=== PATIENT | female | born 1955 | race Caucasian/White ===

== ENCOUNTER 2017-07-07 14:00 | Observation (INO) | payer MEDICARE, OTHER ==
[~2017-07-07] VITALS: Ht 157.5 cm; Wt 49.0 kg
--- OUTSIDE RECORDS SUMMARY | 2017-07-07 14:02 | XMS REPORT | Clinical Summary ---
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 Disp. Refills Start End Date Status Date fentaNYL (DURAGESIC) 50 Place 1 patch on the skin Active mcg/hr every third day. morPHINE (MSIR) 15 MG Take 15 mg by mouth every Active tablet 4 (four) hours as needed for severe pain. carisoprodol (SOMA) 350 Take 350 mg by mouth 4 Active MG tablet (four) times a day as needed for muscle spasms. clonAZEPAM (KlonoPIN) 0.5 Take 0.5 mg by mouth 2 Active MG tablet (two) times a day as needed for seizures. sucralfate (CARAFATE) 1 Take 1 g by mouth 4 Active gram tablet (four) times a day. acetaminophen (TYLENOL Take 650 mg by mouth Active ARTHRITIS PAIN) 650 MG 8 every 8 (eight) hours as hr tablet needed for mild pain. acetaminophen (TYLENOL) Take 500 mg by mouth Active 500 MG tablet every 6 (six) hours as needed for mild pain. omeprazole (PriLOSEC) 20 Take 20 mg by mouth Active MG capsule daily. POLYETHYLENE GLYCOL 3350 Take by mouth. Active (MIRALAX ORAL) DOCUSATE SODIUM (STOOL Take by mouth. Active SOFTENER ORAL) camphor-methyl Apply topically. 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 Encounters Date Type Specialty Care Team Description 07/01/2017 Office Visit Oncology Vito Mahajan MD Malignant cachexia (Primary Dx); Cancer associated pain; Malignant neoplasm of lower lobe of left lung 06/11/2017 Telephone Oncology Dorothea Fermin MD 06/10/2017 Hospital Radiology Dorothea Fermin MD Non-small cell lung Encounter cancer, unspecified laterality 06/04/2017 Transcribe Oncology Vito Mahajan MD Malignant neoplasm of Orders lung, unspecified laterality, unspecified part of lung (Primary Dx) 06/04/2017 Orders Only Oncology Noa Jefferson RN Non-small cell lung cancer, unspecified laterality (Primary Dx) 06/03/2017 Office Visit Oncology Vito Mahajan MD Malignant neoplasm of lower lobe of left lung (Primary Dx); Cancer associated pain; Malignant cachexia 06/01/2017 Office Visit Oncology Dorothea Fermin MD Non-small cell lung cancer, unspecified laterality (Primary Dx) 06/01/2017 Oncology Oncology Nadeen Domingo RN Survivorship after 07/06/2016 Family History Medical History Relation Name Comments Stroke Mother Relation Name Status Comments Mother Social History Tobacco Use Types Packs/Day Years Used Date Former Smoker Cigarettes 1 48 Smokeless Tobacco: Former User Alcohol Use Drinks/Week oz/Week Comments No Sex Assigned at Date Recorded Not on file Last Filed Vital Signs Vital Sign Reading Time Taken Blood Pressure 110/54 07/01/2017 2:04 PM CDT Pulse 118 07/01/2017 2:04 PM CDT Temperature 36.9 C (98.4 F) 07/01/2017 2:04 PM CDT Respiratory Rate 24 06/01/2017 8:39 AM CLAIMS REPRESENTATIVE Oxygen Saturation - - Inhaled Oxygen - - Concentration Weight 46.4 kg (102 lb 3.2 oz) 07/01/2017 2:04 PM CDT Height 157.5 cm (5' 2") 07/01/2017 2:04 PM CDT Body Mass Index 18.69 07/01/2017 2:04 PM CDT Plan of Treatment Date Type Specialty Care Team Description 07/29/2017 Office Visit Oncology Vito Mahajan MD [address] [facility] [address] [place] [address] Health Maintenance Due Date Last Done Comments PAP SMEAR 1975 COLONOSCOPY 2004 MAMMOGRAM 2004 ZOSTER VACCINE 2014 INFLUENZA VACCINE 11/10/2016 Results * PET/CT Skull Base To Mid Thigh (06/10/2017 5:55 PM) Specimen Performing Laboratory [facility] [address] [place] [address] Narrative PROCEDURE:PET CT SKULL BASE TO MID THIGH INDICATION:Restaging lung cancer, subsequent treatment strategy. TECHNIQUE:Blood glucose measured at the time of injection was 91 mg/dL. The patient was then injected with 9.1 mCi of 18F-FDG, IV.Approximately one hour later, PET images were acquired from the skull base to the mid thighs. Corresponding, low dose, non-contrast CT scanning was performed as part of the attenuation correction process.Automated dose exposure control was utilized. COMPARISON:No comparison imaging. FINDINGS: Head and neck:No suspicious brain uptake.Normal uptake is seen in the visualized sinuses, orbits, nasopharynx, and oropharynx.Uptake by the larynx is normal.No suspicious neck lymph node uptake. Chest:Left lower paratracheal lymph node demonstrates an SUV of 5.7.It is not enlarged by size criteria, measuring 1.1 cm x 0.6 cm.Left infrahilar mass abuts the descending thoracic aorta and demonstrates increased uptake. There are areas of necrosis present.The maximum SUV is 13.3.At its largest, the mass measures 9.5 cm x 6.1 cm.There is probable pleural involvement, but no definite chest wall invasion.No suspicious uptake in the right lung. Abdomen:Normal uptake is seen in the stomach, spleen, pancreas, liver, and adrenal glands.Enlarged gastrohepatic lymph node demonstrates an SUV of 11.2 and measures 2.4 cm x 1.5 cm.Small retrocrural lymph node demonstrates an SUV of 3.No abnormal retroperitoneal lymph node uptake.Physiologic bowel uptake. Pelvis:Physiologic bowel uptake.No abnormal pelvic sidewall or inguinal lymph node uptake. Review of the osseous structures demonstrates abnormal uptake within sclerosis in the left pedicle of T7, with an SUV of 7.8. IMPRESSION: 1.Primary left infrahilar malignancy, with probable mediastinal and pleural invasion.No definite chest wall invasion. 2.Metastatic disease is identified within lymph nodes in the chest and abdomen and within the thoracic spine. [facility]-[id number] Procedure Note Interface, Radiology Results - 06/10/2017 6:28 PM CLAIMS REPRESENTATIVE PROCEDURE: PET CT SKULL BASE TO MID THIGH INDICATION: Restaging lung cancer, subsequent treatment strategy. TECHNIQUE: Blood glucose measured at the time of injection was 91 mg/dL. The patient was then injected with 9.1 mCi of 18F-FDG, IV. Approximately one hour later, PET images were acquired from the skull base to the mid thighs. Corresponding, low dose, non-contrast CT scanning was performed as part of the attenuation correction process. Automated dose exposure control was utilized. COMPARISON: No comparison imaging. FINDINGS: Head and neck: No suspicious brain uptake. Normal uptake is seen in the visualized sinuses, orbits, nasopharynx, and oropharynx. Uptake by the larynx is normal. No suspicious neck lymph node uptake. Chest: Left lower paratracheal lymph node demonstrates an SUV of 5.7. It is not enlarged by size criteria, measuring 1.1 cm x 0.6 cm. Left infrahilar mass abuts the descending thoracic aorta and demonstrates increased uptake. There are areas of necrosis present. The maximum SUV is 13.3. At its largest, the mass measures 9.5 cm x 6.1 cm. There is probable pleural involvement, but no definite chest wall invasion. No suspicious uptake in the right lung. Abdomen: Normal uptake is seen in the stomach, spleen, pancreas, liver, and adrenal glands. Enlarged gastrohepatic lymph node demonstrates an SUV of 11.2 and measures 2.4 cm x 1.5 cm. Small retrocrural lymph node demonstrates an SUV of 3. No abnormal retroperitoneal lymph node uptake. Physiologic bowel uptake. Pelvis: Physiologic bowel uptake. No abnormal pelvic sidewall or inguinal lymph node uptake. Review of the osseous structures demonstrates abnormal uptake within sclerosis in the left pedicle of T7, with an SUV of 7.8. IMPRESSION: 1. Primary left infrahilar malignancy, with probable mediastinal and pleural invasion. No definite chest wall invasion. 2. Metastatic disease is identified within lymph nodes in the chest and abdomen and within the thoracic spine. [facility]-[id number] * CBC with platelet and differential (06/01/2017 9:58 AM) Component Value Ref Range WBC 17.3 (H) 3.4 - 10.8 x10E3/uL RBC 4.32 3.77 - 5.28 x10E6/uL HGB 12.4 11.1 - 15.9 g/dL HCT 38.2 34.0 - 46.6 % MCV 88 79 - 97 fL MCH 28.7 26.6 - 33.0 pg MCHC 32.5 31.5 - 35.7 g/dL RDW 15.0 12.3 - 15.4 % Platelet count 652 (H) 150 - 379 x10E3/uL Neutrophils 61 Not Estab. % Lymphocytes 12 Not Estab. % Monocytes 8 Not Estab. % Eosinophils 18 Not Estab. % Basophils 1 Not Estab. % Neutrophils, absolute 10.5 (H) 1.4 - 7.0 x10E3/uL Lymphocytes, absolute 2.1 0.7 - 3.1 x10E3/uL Monocytes, absolute 1.3 (H) 0.1 - 0.9 x10E3/uL Eosinophils, absolute 3.2 (H) 0.0 - 0.4 x10E3/uL Basophils, absolute 0.1 0.0 - 0.2 x10E3/uL Immature granulocytes 0 Not Estab. % Immature grans (abs) 0.0 0.0 - 0.1 x10E3/uL Specimen Performing Laboratory [facility] Narrative Performed at:[address] [place] [address] Middle School Football Coach: Vimal Razo MD, Phone:[phone] * Comprehensive metabolic panel (06/01/2017 9:58 AM) Component Value Ref Range Glucose 83 65 - 99 mg/dL BUN, whole blood 5 (L) 8 - 27 mg/dL Creatinine 0.44 (L) 0.57 - 1.00 mg/dL EGFR Non-Afr. Togolese 108 >59 EGFR 124 >59 BUN/creatinine ratio 11 (L) 12 - 28 Sodium 137 134 - 144 mmol/L Potassium 5.2 3.5 - 5.2 mmol/L Chloride 93 (L) 96 - 106 mmol/L CO2 23 18 - 29 mmol/L Calcium 9.3 8.7 - 10.3 mg/dL Protein 5.7 (L) 6.0 - 8.5 g/dL Albumin, S 3.3 (L) 3.6 - 4.8 g/dL Globulin, total 2.4 1.5 - 4.5 Albumin/globulin ratio 1.4 1.2 - 2.2 Total bilirubin <0.2 0.0 - 1.2 mg/dL Alkaline phosphatase 110 39 - 117 IU/L AST 7 0 - 40 IU/L ALT 3 0 - 32 IU/L Specimen Performing Laboratory Blood [facility] Narrative Performed at:[address] [place], [place] [id number] Middle School Football Coach: Vimal Razo MD, Phone:[phone] after 07/06/2016 Insurance Payer Benefit Subscriber ID Type Phone Address Plan / Group MEDICARE MEDICARE xxxxxxxxxx Medicare [place], [place] PART A AND B COMMERCIAL MISC MISC xxxxxxxxxx [place] [address]
[2017-07-07 14:47] LABS: BASOPHILS % 0.2 % (0.0-1.0); EOSINOPHILS # (AUTO) 0.5 (0.0-0.4); EOSINOPHILS % 4.5 % (0.0-6.0); HEMATOCRIT 32.1 % (34.2-44.1); HEMOGLOBIN 10.1 g/dL (12.0-16.0); LYMPHOCYTES # (AUTO) 0.3 (1.0-3.2); LYMPHOCYTES % 2.2 % (18.0-39.1); MEAN CORPUSCULAR HEMOGLOBIN 26.4 pg (28-32); MEAN CORPUSCULAR HGB CONC 31.5 g/dL (31-35); MONOCYTES # (AUTO) 1.4 (0.2-0.8); MONOCYTES % 11.2 % (4.4-11.3); NEUTROPHILS # (AUTO) 9.8 (2.1-6.9); NEUTROPHILS % 80.9 % (38.7-80.0); PLATELET COUNT 421 x10e3/uL (140-360); RED BLOOD COUNT 3.82 x10e6/uL (3.6-5.1); RED CELL DISTRIBUTION WIDTH 15.1 % (11.7-14.4)
[2017-07-07 14:54] LABS: INR 1.03; PROTHROMBIN TIME 12.7 seconds (11.9-14.5)
[2017-07-07 14:55] LABS: BILIRUBIN,URINE NEGATIVE (NEGATIVE); KETONES,URINE NEGATIVE (NEGATIVE); LEUKOCYTE ESTERASE ,URINE TRACE (NEGATIVE); NITRITE,URINE NEGATIVE (NEGATIVE); PARTIAL THROMBOPLASTIN TIME 32.8 seconds (23.8-35.5); PROTEIN,URINE DIPSTICK NEGATIVE (NEGATIVE); URINE UROBILINOGEN 0.2 mg/dL (0.2 - 1)
[2017-07-07 14:56] LABS: CLARITY,URINE CLEAR (CLEAR); COLOR,URINE YELLOW (YELLOW)
--- NOTE | 2017-07-07 14:59 | Diagnostic Imaging Report ---
EXAMINATION: Head CT HISTORY: Confusion, reaction to methadone COMPARISON: None. TECHNIQUE: Multidetector axial images were obtained without contrast from the foramen magnum to the vertex . The images were reconstructed using brain and bone algorithms. Thin section brain images were reformatted into coronal and sagittal planes. Intravenous contrast: None. Motion/streaking artifact limits the evaluation of the skull base and posterior cranial fossa. FINDINGS: Parenchyma: 1. Moderate confluent periventricular and cloud radiata white matter hypodensities, most likely nonspecific chronic microvascular ischemic changes. 2. No mass or hemorrhage. No CT evidence of acute territorial vascular insult. Extra-axial spaces:No abnormal density. No extra-axial fluid collections Brain volume: Normal for age. Ventricles: No hydrocephalus or displacement. Arteries: No density suggestive of thrombus. Dural sinuses: No abnormal density. Extra-axial spaces: No abnormal density. Foramen magnum: No mass, Chiari malformation, or basilar invagination. Sella: No obvious mass. Paranasal/mastoid sinuses: Imaged portions unremarkable. Skull/Scalp: No lytic or blastic lesions. No fractures. IMPRESSION: 1. No acute intracranial hemorrhage or CT evidence of acute territorial cortical vascular insults. 2. Moderate chronic microvascular ischemic changes. Superimposed acute ischemia cannot be excluded, if there is clinical concern for acute ischemia a brain MRI is recommended for further evaluation. Signed by: Dr. Eryn Suarez M.D. on 07/07/2017 2:55 PM
[2017-07-07 15:02] LABS: ALBUMIN 2.2 g/dL (3.5-5.0); ALBUMIN/GLOBULIN RATIO 0.6 (0.8-2.0); ALKALINE PHOSPHATASE 98 IU/L (40-150); ANION GAP 13.6 mmol/L (8-16); BLOOD UREA NITROGEN < 5 mg/dL (7-26); CALCIUM 9.1 mg/dL (8.4-10.2); CARBON DIOXIDE 30 mmol/L (22-29); CHLORIDE 95 mmol/L (98-107); CREATININE, SERUM 0.52 mg/dL (0.57-1.11); EST GLOMERULAR FILTRATION RATE > 60 ML/MIN (60-); GLUCOSE 112 mg/dL (74-118); POTASSIUM 3.6 mmol/L (3.5-5.1); SODIUM 135 mmol/L (136-145)
[2017-07-07 15:03] LABS: ALANINE AMINOTRANSFERASE < 6 IU/L (0-55); BUN/CREATININE RATIO 10 (6-25)
[2017-07-07 15:12] LABS: EPITHELIAL CELLS,URINE MANY /LPF
[2017-07-07 15:13] LABS: RBC,URINE 0-5 /HPF (0-5); WBC,URINE (MAN) 21-50 /HPF (0-5)
[2017-07-07 15:14] LABS: TRANSITIONAL EPI CELLS,URINE MANY
[2017-07-07 15:18] LABS: CREATINE KINASE 21 IU/L (29-168)
--- NOTE | 2017-07-07 15:21 | Diagnostic Imaging Report ---
PROCEDURE: X-RAY CHEST, TWO VIEWS COMPARISON: None. INDICATIONS: dizzy, shaking FINDINGS: LUNGS: Complete opacification of the left hemithorax. Right lung is well-inflated without mass or infiltrate. There is eventration of left diaphragm. No surgical clips are visible. PLEURA: No right pleural effusion or pneumothorax.. HEART \T\ MEDIASTINUM: MediPort catheter terminates in the SVC. The heart is poorly visualized due to opacification of the left hemithorax. BONES \T\ SOFT TISSUES: No lytic or blastic lesions. There is mild scoliosis of the thoracolumbar spine convex to the right. CONCLUSION: Complete opacification of the left hemithorax either due to malignancy or left pneumonectomy. No abnormalities of the right hemithorax. Dictated by: Rob Day M.D. on 07/07/2017 at 15:22 Electronically approved by: Rob Day M.D. on 07/07/2017 at 15:22
[2017-07-07 15:49] LABS: BAND NEUTROPHILS % (MANUAL) 2 %; EOSINOPHILS % (MANUAL) 5 % (0-7); LYMPHOCYTES % (MANUAL) 3 % (19-48); MONOCYTES % (MANUAL) 9 % (3.4-9.0); NEUTROPHILS % (MANUAL) 81 % (40-74)
[2017-07-07 15:50] LABS: PLATELET MORPHOLOGY COMMENT NORMAL
[2017-07-07 15:51] LABS: ANISOCYTOSIS SLIGHT; PLATELET ESTIMATE ADEQUATE; RBC MORPHOLOGY COMMENT NORMAL
[2017-07-07] MEDS ORDERED: SODIUM CHLORIDE 0.9% 1000ML 1,000 ML IV SCH (16:30)
[2017-07-07] MEDS ORDERED: METHADONE HCL10 MG PO (16:32)
[2017-07-07] MEDS ORDERED: GABAPENTIN100 MG PO (16:32)
[2017-07-07] MEDS ORDERED: PRILOSEC10 M1 PEG (16:32)
[2017-07-07] MEDS ORDERED: CARAFATE1 GM/10 ML PO (16:32)
[2017-07-07] MEDS ORDERED: KLONOPIN0.5 MG PO (16:32)
[2017-07-07] MEDS ORDERED: FENTANYL 50 MCG TOP (16:32)
[2017-07-07] MEDS ORDERED: OTC STOOL SOFTNER PO (16:32)
[2017-07-07] MEDS ORDERED: MORPHINE SULFAT30 M2 PO (16:32)
[2017-07-07] MEDS ORDERED: SODIUM CHLORIDE 0.9% 1000ML 1,000 ML IV STA (16:33)
--- OUTSIDE RECORDS SUMMARY | 2017-07-07 16:57 | XMS REPORT ---
Author Author [facility] Address Unknown Phone Unavailable Care Team Providers Care Fabricator Special Items Name Role Phone DAFNE GRIFFIN Unavailable Unavailable Problems This patient has no known problems. Allergies, Adverse Reactions, Alerts This patient has no known allergies or adverse reactions. Medications This patient has no known medications. Results Test Description Test Time Test Comments Text Results Atomic Results Result Comments CT BRAIN WO [place] [address] Patient Name: SHAINA MCMANUS MR #: [id number] : 1955 Age/Sex: 62/F Req #: [id number] Adm Physician: Ordered by: DAFNE GRIFFIN MD Report #: [id number] Location: ER Room/Bed: Procedure: [id number] CT/CT BRAIN WO Exam Date: 07/07/17 Exam Time: 1430 REPORT STATUS: Signed EXAMINATION: Head CT HISTORY: Confusion, reaction to methadone COMPARISON: None. TECHNIQUE: Multidetector axial images were obtained without contrast from the foramen magnum to the vertex . The images were reconstructed using brain and bone algorithms. Thin section brain images were reformatted into coronal and sagittal planes. Intravenous contrast: None. Motion/streaking artifact limits the evaluation of the skull base and posterior cranial fossa. FINDINGS: Parenchyma: 1. Moderate confluent periventricular and cloud radiata white matter hypodensities, most likely nonspecific chronic microvascular ischemic changes. 2. No mass or hemorrhage. No CT evidence of acute territorial vascular insult. Extra-axial spaces:No abnormal density. No extra-axial fluid collections Brain volume: Normal for age. Ventricles: No hydrocephalus or displacement. Arteries: No density suggestive of thrombus. Dural sinuses: No abnormal density. Extra-axial spaces : No abnormal density. Foramen magnum: No mass, Chiari malformation, or basilar invagination. Sella: No obvious mass. Paranasal/ mastoid sinuses: Imaged portions unremarkable. Skull/Scalp: No lytic or blastic lesions. No fractures. IMPRESSION: 1. No acute intracranial hemorrhage or CT evidence of acute territorial cortical vascular insults. 2. Moderate chronic microvascular ischemic changes. Superimposed acute ischemia cannot be excluded, if there is clinical concern for acute ischemia a brain MRI is recommended for further evaluation. Signed by: Dr. Harpreet Suarez M.D. on 07/07/2017 2:55 PM Dictated By: HARPREET SUAREZ MD 53 Transcribed By: MALACHI on 07/07/177 COPY TO: DAFNE GRIFFIN MD CHEST 2 VIEWS [place] [address] Patient Name: SHAINA TAYLOR MR #: [id number] : 1955 Age/Sex: 62/F Req #: [id number] Adm Physician: Ordered by: DAFNE GRIFFIN MD Report #: [id number] Location: ER Room/Bed: Procedure: [id number] DX/CHEST 2 VIEWS Exam Date: Exam Time: REPORT STATUS: Signed PROCEDURE: X-RAY CHEST, TWO VIEWS COMPARISON: None. INDICATIONS: dizzy, shaking FINDINGS: LUNGS: Complete opacification of the left hemithorax. Right lung is well-inflated without mass or infiltrate. There is eventration of left diaphragm. No surgical clips are visible. PLEURA: No right pleural effusion or pneumothorax.. HEART T MEDIASTINUM: MediPort catheter terminates in the SVC. The heart is poorly visualized due to opacification of the left hemithorax. BONES T SOFT TISSUES: No lytic or blastic lesions. There is mild scoliosis of the thoracolumbar spine convex to the right. CONCLUSION: Complete opacification of the left hemithorax either due to malignancy or left pneumonectomy. No abnormalities of the right hemithorax. Dictated by: Rob Day M.D. on 07/07/2017 at 15: 22 Electronically approved by: Rob Day M.D. on 07/07/2017 at 15:22 Dictated By: ROB DAY MD 1522 Transcribed By: FRANKY on 07/07/17 1522 COPY TO: DAFNE GRIFFIN MD
--- OUTSIDE RECORDS SUMMARY | 2017-07-07 16:57 | XMS REPORT | Clinical Summary ---
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 Name Role Phone Asked, Pcp PCP Unavailable [...] laterality (Primary Dx) 06/01/2017 Oncology Oncology Nadeen Doimngo RN Survivorship after 07/06/2016 Family History Medical [...] CDT Respiratory Rate 24 06/01/2017 8:39 AM PROSTHETIC DENTIST Oxygen Saturation - - Inhaled Oxygen - - Concentration Weight 46.4 kg (102 lb 3.2 oz) 07/01/2017 2:04 PM CDT Height 157.5 cm (5' 2") 07/01/2017 2:04 PM CDT Body Mass Index 18.69 07/01/2017 2:04 PM CDT Plan of Treatment Date Type Specialty Care Team Description 07/29/2017 Office Visit Oncology Vito Mahajan MD [address] [facility] [address] [place] [address] Health Maintenance Due Date Last Done Comments PAP SMEAR 1975 COLONOSCOPY 2004 MAMMOGRAM 2004 ZOSTER VACCINE 2014 INFLUENZA VACCINE 11/10/2016 Results * PET/CT Skull Base To Mid Thigh (06/10/2017 5:55 PM) Specimen Performing Laboratory [facility] [address] [place] [address] Narrative PROCEDURE:PET CT SKULL BASE TO MID [...] and abdomen and within the thoracic spine. [facility]-[id number] Procedure Note Interface, Radiology Results - 06/10/2017 6:28 PM PROSTHETIC DENTIST PROCEDURE: PET CT SKULL BASE TO MID [...] and abdomen and within the thoracic spine. [facility]-[id number] * CBC with platelet and differential (06/01/2017 [...] Specimen Performing Laboratory Blood [facility] Narrative Performed at:[address] [place] [address] Fly Raiser Lockstitch: Vimal Razo MD, Phone:[phone] * Comprehensive metabolic panel (06/01/2017 9:58 AM) Component Value Ref Range Glucose 83 65 - 99 mg/dL BUN, whole blood 5 (L) 8 - 27 mg/dL Creatinine 0.44 (L) 0.57 - 1.00 mg/dL EGFR Non-Afr. Micronesian 108 >59 EGFR 124 >59 BUN/creatinine ratio [...] Specimen Performing Laboratory [facility] Narrative Performed at:[address] [place], [place] [id number] Fly Raiser Lockstitch: Vimal Razo MD, Phone:[phone] after 07/06/2016 Insurance Payer Benefit Subscriber ID Type Phone Address Plan / Group MEDICARE MEDICARE xxxxxxxxxx Medicare [place], [place] PART A AND B COMMERCIAL MISC MISC xxxxxxxxxx [place] [address]
[2017-07-07] MEDS: SODIUM CHLORIDE 0.9% 1000ML 1,000 ML IV SCH (17:27)
[2017-07-07] MEDS: CEFTRIAXONE SOD 1 GM VIAL IV SCH (17:27)
[2017-07-07] MEDS: ONDANSETRON HCL INJ 2 MG/ML VIAL IV PRN (17:32)
[2017-07-07] MEDS: MORPHINE SULFATE 2 MG/ML SYR IV PRN (17:32)
[2017-07-07 20:00] VITALS: BP 95/51
[2017-07-07 20:53] VITALS: BP 109/79
[2017-07-08] VITALS: BP 110/54
[2017-07-08] MEDS: SODIUM CHLORIDE 0.9% 1000ML 1,000 ML IV SCH (00:38)
[2017-07-08] MEDS: MORPHINE SULFATE 2 MG/ML SYR IV PRN ×4 (01:55→19:17)
[2017-07-08 04:00] VITALS: BP 105/63
[2017-07-08] MEDS: CEFTRIAXONE SOD 1 GM VIAL IV SCH ×2 (04:38→15:58)
[2017-07-08] MEDS: PANTOPRAZOLE SOD 40 MG TABEC PO SCH (08:15)
[2017-07-08 08:34] VITALS: BP 135/75
[2017-07-08 12:43] VITALS: BP 126/78
[2017-07-08] MEDS ORDERED: METHADONE HCL 10 MG TAB PO SCH (15:00)
[2017-07-08] MEDS: GABAPENTIN 100 MG CAP PO SCH ×2 (15:58→19:17)
[2017-07-08] MEDS: CLONAZEPAM 0.5 MG TAB PO SCH (16:08)
[2017-07-08 16:31] VITALS: BP 119/68
--- NOTE | 2017-07-08 17:34 | History and Physical ---
PRIMARY CARE PROVIDER: Jamia Neil MD HISTORY OF PRESENT ILLNESS: The patient is a 62-year-old female that has an underlying history of stage 4 left lung cancer. 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 Her last chemotherapy was January 2017. Her last radiation was on Wednesday about a week ago. She comes to the emergency department due to poor concentration, expressive aphasia, getting out of bed with strange behavior such as flushes a wash cloth down the toilet, throwing her dentures in the garbage. The only recent change per the family is that methadone was introduced 6 days ago in an attempt to wean off the morphine. She has also been having shortness of breath and some pressure in her chest. She does not use oxygen at home. She is currently seen in intermediate care unit, room 180. PAST MEDICAL HISTORY: As above. The patient is reportedly rather healthy cancer patient who goes to [facility] for her care. PAST SURGICAL HISTORY: Hysterectomy about 30 years ago. PAST FAMILY HISTORY: Includes mother having breast cancer and a stroke. Father is still alive and is healthy. She has two brothers, one of which has of throat cancer. ALLERGIES: NO KNOWN DRUG ALLERGIES. HOME MEDICATIONS: Klonopin 0.5 mg p.o. b.i.d., gabapentin 100 mg p.o. t.i.d., methadone 10 mg p.o. t.i.d., morphine sulfate, extended release 30 mg p.o. daily, Carafate 1 gram p.o. daily. SOCIAL HISTORY: Patient lives with her daughter. 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 Functionally, she has been ambulatory without a rolling walker or use of a cane. She used to smoke 1 pack per day for 40 years. She drinks socially. Her daughter states that she was a child of the 60's and could have used illicit drugs such as PCP or LSD. REVIEW OF SYSTEMS: GENERAL: The patient complains of malaise, fatigue and chills. HEENT: Denies any visual complaints. She says it takes concentration to swallow. Denies headache or dizziness. CARDIOVASCULAR: Denies chest pain. Does have chest pressure. No palpitations. She has dyspnea on exertion. PULMONARY: She has shortness of breath and dyspnea on exertion. Denies any pleuritic chest pain. No cough or phlegm. GASTROINTESTINAL: She has no complaints of nausea, vomiting, diarrhea or constipation. Her last bowel movement was this morning. She has a decrease in appetite. Denies melena. GENITOURINARY: Denies dysuria, frequency, urgency. MUSCULOSKELETAL: Denies any arthritic pain. ENDOCRINE: Negative for diabetes. HEMATOLOGY: Denies bleeding or bruising. INFECTIOUS DISEASE: No known history of HIV. She does have immunodeficiency. NEUROLOGIC: Denies any focal weakness, numbness, tingling or seizures, but she does have altered mental status. PHYSICAL EXAMINATION VITAL SIGNS: Temperature 97.4, heart rate 120, blood pressure 135/75 and MAP of 95. Respiratory rate 20. O2 saturation 92%. Weight 108 pounds. BMI is 19.75 GENERAL: The patient appears pale, cachectic, generally ill, emaciated without acute distress. HEENT: Pupils are equal, round and reactive to light. Extraocular eye movements are intact. Oropharynx is dry and clear. NECK: Supple. No lymphadenopathy, thyromegaly or JVD. No carotid bruit. CARDIOVASCULAR: Regular rate and rhythm without murmur. She has a right chest Port-A-Cath that has not been accessed. LUNGS: Air entry bilaterally with clear lung sounds. The patient is on oxygen at 2 liters via nasal cannula. ABDOMEN: Bowel sounds positive, soft, nontender. EXTREMITIES: No pitting edema. No signs of DVT. No clubbing or cyanosis. INTEGUMENTARY: Pale. Warm and dry. NEUROLOGIC: GCS 14-15. Cranial nerves II-XII are intact. Alert and oriented x4 at present. She was able to ambulate to the restroom with assistance without the use of a walker. LABORATORY DATA: Today, sodium 135, potassium 3.6, chloride 95, CO2 30. Creatinine 0.52. BUN less than 5 for a GFR greater than 60. Glucose 112. WBC is 12.1, hemoglobin 10.1, hematocrit 32.1, platelets 421,000. Creatine kinase 21. CK-MB 0.7. Troponin I less than 0.001. Total protein 5.6. Albumin 2.2. Total bilirubin is less than 0.3. AST 7. ALT less than 6. Alkaline phosphatase 98. Urinalysis collected today showed trace amount of leukocyte esterases, WBCs 21-50. No urine bacteria. Chest x-ray completed today showed complete opacification of the left hemithorax either due to malignancy or left pneumonectomy. CT of the head without contrast showed no acute intracranial hemorrhage, moderate chronic microvascular ischemic changes. ASSESSMENT AND PLAN 1. Urinary tract infection with dehydration, cystitis and leukocytosis. Patient is on Rocephin 1 gram IV q.12 hours. IV fluids have been stopped as the patient is able to drink and her BUN is less than 5. Creatinine 0.52. Continue to encourage p.o. fluids. No vomiting. 2. Stage IV primary left lung cancer. The patient's daughter, Melita Gaines, has spoken with Dee, the case assistant, and has elected to have [facility] evaluate her mom, and they will discuss options such as potentially being discharged home on oral antibiotics and going home with home hospice. 3. Altered mental status secondary to #1 and #2, as well as possibly use of methadone. The case was discussed with family at the bedside. It could be that the confusion will gradually improve with treatment of the urinary tract infection or it could be that the confusion is due to the methadone use. Will hold methadone for now and continue with morphine IV. 4. Cachexia with moderate to severe protein calorie malnutrition. Maintain nutritional support with regular diet. Chronic pain syndrome secondary to #2. Continue morphine and adjust p.r.n. 5. Prophylaxis: Continue Protonix for peptic ulcer disease prophylaxis. The patient is ambulatory. Dictated by: Octaviano Warner Acute Care Nurse Practitioner Job#: [id number]
--- NOTE | 2017-07-08 17:46 | Diagnostic Imaging Report ---
PROCEDURE:US CHEST (INCL MEDIASTINUM) COMPARISON:Chest x-ray 06/29/2017. INDICATIONS:THORA IF PE IS PRESENT FINDINGS: No right pleural effusion. Trace left pleural effusion. CONCLUSION:Trace left pleural effusion. Dictated by: Hakan Wills M.D. on 07/08/2017 at 17:46 Electronically approved by: Hakan Wills M.D. on 07/08/2017 at 17:46
[2017-07-08 20:00] VITALS: BP 127/68
[2017-07-08] MEDS: ONDANSETRON HCL INJ 2 MG/ML VIAL IV PRN (21:25)
[2017-07-09] VITALS (8 sets, daily range): BP systolic 107–134; BP diastolic 61–71
[2017-07-09] MEDS: MORPHINE SULFATE 2 MG/ML SYR IV PRN ×5 (00:07→19:45)
[2017-07-09] MEDS: CEFTRIAXONE SOD 1 GM VIAL IV SCH ×2 (04:47→15:59)
[2017-07-09] MEDS: SUCRALFATE 1 GM/10 ML SUSP PO SCH (08:26)
[2017-07-09] MEDS: PANTOPRAZOLE SOD 40 MG TABEC PO SCH (08:26)
[2017-07-09] MEDS: CLONAZEPAM 0.5 MG TAB PO SCH ×2 (08:26→16:10)
[2017-07-09] MEDS: GABAPENTIN 100 MG CAP PO SCH ×3 (08:27→23:34)
[2017-07-09] MEDS ORDERED: MORPHINE SULFATE 30 MG TAB ER PO SCH (09:00)
[2017-07-09] MEDS: ONDANSETRON HCL INJ 2 MG/ML VIAL IV PRN ×3 (09:58→19:45)
[2017-07-09] MEDS: MORPHINE SULFATE 30 MG TAB ER PO SCH (23:34)
[2017-07-10] VITALS: BP 128/74
[2017-07-10] MEDS: ONDANSETRON HCL INJ 2 MG/ML VIAL IV PRN ×2 (02:10→10:30)
[2017-07-10] MEDS: MORPHINE SULFATE 2 MG/ML SYR IV PRN ×2 (02:10→10:25)
[2017-07-10 04:00] VITALS: BP 99/66
[2017-07-10] MEDS: CEFTRIAXONE SOD 1 GM VIAL IV SCH (05:14)
[2017-07-10 07:49] VITALS: BP 96/57
[2017-07-10 07:54] VITALS: BP 96/57
[2017-07-10] MEDS: PANTOPRAZOLE SOD 40 MG TABEC PO SCH (08:11)
[2017-07-10] MEDS: CLONAZEPAM 0.5 MG TAB PO SCH (08:11)
[2017-07-10] MEDS: GABAPENTIN 100 MG CAP PO SCH (08:11)
[2017-07-10] MEDS: MORPHINE SULFATE 30 MG TAB ER PO SCH (08:11)
[2017-07-10] MEDS: SUCRALFATE 1 GM/10 ML SUSP PO SCH (08:11)
[2017-07-10 10:06] VITALS: BP 107/54
[2017-07-10] MEDS ORDERED: CEFTIN PO (10:25)
--- NOTE | 2017-07-10 21:13 | Discharge Summary ---
ADMISSION DIAGNOSES 1. Urinary tract infection with dehydration. 2. Cystitis. 3. Leukocytosis. 4. Stage 4 primary left lung cancer. 5. Altered mental status. 6. Cachexia. DISCHARGE DIAGNOSES 1. Urinary tract infection with dehydration. 2. Cystitis. 3. Leukocytosis. 4. Stage 4 primary left lung cancer. 5. Altered mental status. 6. Cachexia. The patient has a history of lung cancer where she goes to [facility]. Her last radiation was on Wednesday, about a week ago. Surgical history of hysterectomy about 30 years ago. HOSPITAL COURSE: A 62-year-old female has come to the ER due to poor concentration, expressive aphasia, getting out of bed with strange behavior such as flushing a washcloth down the toilet and throwing her dentures in the garbage. The only recent change per family is the patient was started on methadone about 6 days ago in an attempt to wean off morphine. She is also having shortness of breath and does not use oxygen. On admission, the patient was started on Rocephin and tolerating . For the lung cancer, the family has decided to contact hospice. Case management has set that up and the patient will be discharged home with hospice and oxygen. The altered mental status that was present has resolved prior to discharge. Chest x-ray on admission showed complete opacification of the left hemithorax either due to malignancy or left pneumonectomy. No abnormalities of the right hemithorax. CT of the brain showed no acute intracranial hemorrhage or CT evidence of acute territorial cortical vascular insult. Ultrasound of the chest showed trace left pleural effusion. The patient was denying any urinary symptoms, but due to elevated white count the patient was sent home on which may or may not , once accepted and set up at home. The patient was continued on all home medicines as altered mental status has resolved. The patient is ready to go home. Family ready to go home. She is with her daughter and hospice was set up at home. Dictated by: Alie Schneider NP SAM MCLAUGHLIN MD Job#: [id number]
== END 2017-07-10 11:10 | disposition hospice, home (50) ==
LOC: ER 14:00 → ERHOLD 16:54 → IMCU 19:31
PROVIDERS: ADMIT Internal Medicine; ATTEND Internal Medicine
DX: N30.00 Acute cystitis without hematuria (principal); E86.0 Dehydration; C34.92 Malignant neoplasm of unspecified part of left bronchus or lung; Z79.891 Long term (current) use of opiate analgesic; E43 Unspecified severe protein-calorie malnutrition; G89.3 Neoplasm related pain (acute) (chronic); R64 Cachexia
CPT/HCPCS: 36415; 70450; 71046; 76604; 80053; 81001; 82550; 82553; 84484; 85025; 85610; 85730; 96360; 99284; G0378 ×4; J0696 ×4; J2270 ×3; J2405 ×2; J7030